=== PATIENT | female | born 1980 | race Hispanic/Latino ===

== ENCOUNTER → 2018-02-28 | Outpatient (CLI) | payer MEDICAID ==
[~2018-02-28] MED LIST: REGADENOSON 0.4 MG/5 ML PF SYG IVP SCH
== END | disposition home or self-care (01) ==
LOC: RAH 08:55
PROVIDERS: ATTEND Family Medicine
DX: R07.9 Chest pain, unspecified (principal)
CPT/HCPCS: 78452; 93017; 96374; A9500 ×2; J2785

== ENCOUNTER 2021-07-22 11:25 | Emergency (ER) | payer BC, MEDICAID ==
[~2021-07-22] VITALS: Ht 160 cm; Wt 90.7 kg
[2021-07-22] MEDS ORDERED: ACETAMINOPHEN 325 MG TAB PO ONE (12:00)
[2021-07-22] MEDS ORDERED: LACTATED RINGERS 1000ML 1,000 ML IV ONE ×2 (12:00)
[2021-07-22] MEDS ORDERED: PANTOPRAZOLE 40 MG/VIAL IVP ONE (12:00)
[2021-07-22] MEDS ORDERED: ONDANSETRON 4MG INJ IVP ONE (12:00)
[2021-07-22 12:16] LABS: BASOPHILS % (AUTO) 0.5 % (0.0-5.0); EOSINOPHILS % (AUTO) 0.6 % (0.0-8.0); LYMPHOCYTES % (AUTO) 23.2 % (21.0-51.0); MEAN CORPUSCULAR HEMOGLOBIN 29.9 pg (27.0-33.0); MEAN CORPUSCULAR HGB CONC 34.6 g/dL (32.0-36.0); MEAN CORPUSCULAR VOLUME 86.5 fL (79-99); MONOCYTES % (AUTO) 5.8 % (3.0-13.0); NEUTROPHILS % (AUTO) 69.4 % (40.0-77.0); PLATELET COUNT (AUTO) 607 K/uL (130-400); RED BLOOD CELL COUNT(AUTO) 4.51 MIL/uL (4.00-5.50); RED CELL DISTRIBUTION WIDTH 13.6 % (11.0-15.5); WHITE BLOOD COUNT (AUTO) 9.7 K/uL (4.8-10.8)
[2021-07-22 12:20] LABS: CREATININE 0.9 mg/dL (0.5-1.5); POTASSIUM 3.7 mmol/L (3.5-5.1)
[2021-07-22 12:24] LABS: ALBUMIN 4.4 g/dL (3.5-5.0); BILIRUBIN,TOTAL 0.8 mg/dL (0.2-1.0); TOTAL PROTEIN, SERUM 8.6 g/dL (6.0-8.3)
[2021-07-22 13:02] LABS: APPEARANCE,URINE TURBID (CLEAR); BILIRUBIN,URINE NEGATIVE (NEGATIVE); COLOR,URINE YELLOW (YELLOW); GLUCOSE, URINE (UA) NEGATIVE (NEGATIVE); KETONES,URINE 5 mg/dL (NEGATIVE); LEUKOCYTE ESTERASE ,URINE NEGATIVE (NEGATIVE); NITRATE,URINE NEGATIVE (NEGATIVE); OCCULT BLOOD,URINE NEGATIVE (NEGATIVE); PROTEIN,URINE TRACE mg/dL (NEGATIVE); UROBILINOGEN,URINE 0.2 mg/dL (0.2-1.0)
[2021-07-22 13:13] LABS: BACTERIA,URINE Rare /HPF (None Seen); MUCUS,URINE Few LPF (None Seen); RBC,URINE 0-1 /HPF (0-1); WBC,URINE 0-1 /HPF (0-1)
[2021-07-22 13:14] LABS: HYALINE CASTS, URINE 0-1 /LPF (0-1 /LPF); SQUAMOUS EPITHELIAL CELL,UR Few /HPF (0-2); URIC ACID CRYSTALS,URINE Many /LPF (None Seen)
[2021-07-22] MEDS ORDERED: IOHEXOL-350 75 ML VIAL IV ONE (14:25)
[2021-07-22] MEDS ORDERED: KETOROLAC 30MG VIAL (30MG/ML) IV ONE (15:00)
[2021-07-22] MEDS ORDERED: DICYCLOMINE HCL 10 MG/5 ML ML PO ONE (16:30)
[2021-07-22] MEDS ORDERED: LIDOCAINE HCL 2% VISCOUS 15 ML UDCUP PO ONE (16:30)
[2021-07-22] MEDS ORDERED: MAG/ALUM/SIMETH 30 ML UDCUP PO ONE (16:30)
[2021-07-22] MEDS ORDERED: PANT40TA55 PO (17:12)
[2021-07-22 17:19] VITALS: BP 115/64
== END 2021-07-22 17:39 | disposition home or self-care (01) ==
LOC: EDH 11:25
DX: K21.9 Gastro-esophageal reflux disease without esophagitis (principal); R11.2 Nausea with vomiting, unspecified; F41.9 Anxiety disorder, unspecified; E11.9 Type 2 diabetes mellitus without complications; Z90.49 Acquired absence of other specified parts of digestive tract; Z98.890 Other specified postprocedural states
CPT/HCPCS: 36415; 74177; 80053; 81001; 81025; 82550; 83690; 84484; 85025; 96361 ×2; 96374; 96375; 99284; C9113; J1885; J2405; J7120; Q9967

== ENCOUNTER → 2021-10-30 | Outpatient (CLI) | payer BC ==
[~2021-10-30] MED LIST changes: +PANT40TA55 PO; -REGADENOSON 0.4 MG/5 ML PF SYG IVP SCH
== END | disposition home or self-care (01) ==
LOC: RAH 13:22
PROVIDERS: ATTEND Family Medicine
DX: Z12.31 Encounter for screening mammogram for malignant neoplasm of breast (principal)
CPT/HCPCS: 77067

== ENCOUNTER → 2021-12-22 | Outpatient (CLI) | payer BC | END | disposition home or self-care (01) | LOC: RAH 08:09 | PROVIDERS: ATTEND Family Medicine | DX: R92.8 Other abnormal and inconclusive findings on diagnostic imaging of breast (principal); R92.2 Inconclusive mammogram | CPT/HCPCS: 76641; 77065 ==

== ENCOUNTER 2022-05-15 13:11 | Emergency (ER) | payer BC ==
[~2022-05-15] VITALS: Ht 154.9 cm; Wt 97.5 kg
[2022-05-15 13:12] VITALS: BP 158/86
[2022-05-15 13:36] LABS: BASOPHILS % (AUTO) 0.6 % (0.0-5.0); EOSINOPHILS % (AUTO) 3.5 % (0.0-8.0); HEMATOCRIT 37.3 % (36-48); LYMPHOCYTES % (AUTO) 22.7 % (21.0-51.0); MEAN CORPUSCULAR HEMOGLOBIN 39.3 pg (27.0-33.0); MEAN CORPUSCULAR HGB CONC 45.3 g/dL (32.0-36.0); MEAN CORPUSCULAR VOLUME 86.7 fL (79-99); MONOCYTES % (AUTO) 8.8 % (3.0-13.0); NEUTROPHILS % (AUTO) 63.3 % (40.0-77.0); PLATELET COUNT (AUTO) 443 K/uL (130-400); RED CELL DISTRIBUTION WIDTH 13.3 % (11.0-15.5); WHITE BLOOD COUNT (AUTO) 8.9 K/uL (4.8-10.8)
[2022-05-15 13:41] LABS: HCG,QUALITATIVE URINE NEGATIVE (NEGATIVE)
[2022-05-15 13:52] LABS: APPEARANCE,URINE SL CLOUDY (CLEAR); BILIRUBIN,URINE NEGATIVE (NEGATIVE); COLOR,URINE YELLOW (YELLOW); GLUCOSE, URINE (UA) >=1000 mg/dL (NEGATIVE); KETONES,URINE 40 mg/dL (NEGATIVE); LEUKOCYTE ESTERASE ,URINE NEGATIVE Leu/uL (NEGATIVE); NITRATE,URINE POSITIVE (NEGATIVE); OCCULT BLOOD,URINE NEGATIVE (NEGATIVE); PROTEIN,URINE NEGATIVE (NEGATIVE); UROBILINOGEN,URINE 0.2 mg/dL (0.2-1.0)
[2022-05-15 14:12] LABS: BACTERIA,URINE Moderate /HPF (None Seen); RBC,URINE 0-1 /HPF (0-1); WBC,URINE 0-1 /HPF (0-1)
[2022-05-15 14:14] LABS: CREATININE 0.7 mg/dL (0.5-1.5)
[2022-05-15 14:19] LABS: ALBUMIN 3.5 g/dL (3.5-5.0)
[2022-05-15] MEDS: 0.9%NACL 1000ML 1,000 ML IV SCH (16:57)
[2022-05-15] MEDS: CEFTRIAXONE 1G VIAL IVP ONE (17:03)
[2022-05-15] MEDS: INSULIN HUMULIN R 100 UNIT/ML 3ML IV ONE (17:34)
[2022-05-15] MEDS ORDERED: CEFU500T67 PO (17:47)
[2022-05-15] MEDS ORDERED: ONDANSETRON 4MG INJ IVP ONE (18:00)
[2022-05-15] MEDS ORDERED: ONDA4TAB10 PO (18:02)
[2022-05-17] MEDS ORDERED: ONDA4TAB10 PO (21:44)
[2022-05-17] MEDS ORDERED: SULF1TAB42 PO (21:44)
== END 2022-05-15 18:04 | disposition home or self-care (01) ==
LOC: EDH 13:11
DX: E11.65 Type 2 diabetes mellitus with hyperglycemia (principal); N39.0 Urinary tract infection, site not specified; F41.9 Anxiety disorder, unspecified; E66.01 Morbid (severe) obesity due to excess calories; Z90.49 Acquired absence of other specified parts of digestive tract; Z20.822 Contact with and (suspected) exposure to COVID-19; Z68.41 Body mass index [BMI] 40.0-44.9, adult
CPT/HCPCS: 99284; 96374; 87635; 96361; 96375; 80053; 85025; 87077; 87088; 87186; 87804 ×2; 82948; 81001; 81025; 36415; J1815; C9803; J7030; J0696; J2405

== ENCOUNTER → 2022-10-31 | Outpatient (CLI) | payer BC ==
[~2022-10-31] MED LIST changes: +CEFU500T67 PO; +ONDA4TAB10 PO; +SULF1TAB42 PO
== END | disposition home or self-care (01) ==
LOC: RAH 14:43
PROVIDERS: ATTEND Internal Medicine
DX: Z12.31 Encounter for screening mammogram for malignant neoplasm of breast (principal)
CPT/HCPCS: 77067